=== PATIENT | female | born 1980 | race American Indian/Alaskan Native ===

== ENCOUNTER 2021-02-09 17:33 | Emergency (ER) | payer OTHER ==
[2021-02-09] MEDS ORDERED: SODIUM CHLORIDE 0.9% 1000 ML 1,000 ML IV ONE (17:41)
--- NOTE | 2021-02-09 17:41 | Emergency Department Report ---
History of Present Illness - General Chief Complaint: Overdose Stated Complaint: OD Time Seen by Provider: 02/09/21 17:35 - History of Present Illness Initial Comments: Patient is a 40-year-old female that presents emergency room for an overdose. Patient brought in by EMS. Patient took 20 tablets of 40 mg lisinopril mixed with 12.5 hydrochlorothiazide. Patient states pills were taken at 4 PM. Patient denies pain. Patient states she just needs to be. Patient states she was trying to kill herself. Patient states she been depressed and she is tired of all the stress. Patient states her son tried to commit suicide yesterday. Patient states she lost her 2 months ago today and is having a lot of grief and depression. Patient denies homicidal ideations. Patient denies hallucinations. Patient denies recent travel. Patient denies recent international travel. Patient denies exposure to the novel coronavirus. Patient denies sick contacts. Patient denies fever and chills. Patient denies cough. Patient denies diarrhea. Patient denies coming in contact with anybody with symptoms of the novel coronavirus. Complaint: intentional overdose -: Sudden Intent: suicide attempt How Overdose Was Discovered: called family/friend Context: Intentional Overdose: relationship problems - Related Data Home Medications Medication Instructions Recorded Confirmed Last Taken Lisinopril/Hydrochlorothiazide 1 tab PO QDAY 02/10/21 02/10/21 Unknown [Zestoretic 20-25 mg] metFORMIN [Glucophage] 1,000 mg PO BID 02/10/21 02/10/21 Unknown Allergies Allergy/AdvReac Type Severity Reaction Status Date / Time No Known Allergies Allergy Unverified 02/09/21 17:39 ED Review of Systems ROS: Stated complaint: OD Other details as noted in HPI Constitutional: denies: chills, fever Eyes: denies: eye pain, eye discharge, vision change ENT: denies: ear pain, throat pain Respiratory: denies: cough, shortness of breath, wheezing Cardiovascular: denies: chest pain, palpitations Endocrine: no symptoms reported Gastrointestinal: denies: abdominal pain, nausea, diarrhea Genitourinary: denies: urgency, dysuria, discharge Musculoskeletal: denies: back pain, joint swelling, arthralgia Skin: denies: rash, lesions Neurological: denies: headache, weakness, paresthesias Psychiatric: denies: anxiety, depression Hematological/Lymphatic: denies: easy bleeding, easy bruising ED Past Medical Hx - Past Medical History Previous Medical History?: Yes Hx Hypertension: Yes - Surgical History Past Surgical History?: No - Family History Family history: no significant - Social History Smoking Status: Never Smoker Substance Use Type: None - Medications Home Medications: Home Medications Medication Instructions Recorded Confirmed Last Taken Type Lisinopril/Hydrochlorothiazide 1 tab PO QDAY 02/10/21 02/10/21 Unknown History [Zestoretic 20-25 mg] metFORMIN [Glucophage] 1,000 mg PO BID 02/10/21 02/10/21 Unknown History ED Physical Exam - General General appearance: alert, in no apparent distress - Head Head exam: Present: atraumatic, normocephalic - Eye Eye exam: Present: normal appearance - ENT ENT exam: Present: mucous membranes moist - Neck Neck exam: Present: normal inspection - Respiratory Respiratory exam: Present: normal lung sounds bilaterally. Absent: respiratory distress - Cardiovascular Cardiovascular Exam: Present: regular rate, normal rhythm. Absent: systolic murmur, diastolic murmur, rubs, gallop - GI/Abdominal GI/Abdominal exam: Present: soft, normal bowel sounds - Extremities Exam Extremities exam: Present: normal inspection - Back Exam Back exam: Present: normal inspection - Neurological Exam Neurological exam: Present: alert, oriented X3 - Psychiatric Psychiatric exam: Present: normal affect, normal mood - Skin Skin exam: Present: warm, dry, intact, normal color. Absent: rash ED Course Vital Signs 02/09/21 02/09/21 02/09/21 17:41 20:18 21:21 Temperature 98 F Pulse Rate 120 H 90 Respiratory 16 18 Rate Blood Pressure 141/96 133/91 [Right] O2 Sat by Pulse 98 100 99 Oximetry 02/09/21 02/09/21 02/10/21 21:23 23:00 01:15 Temperature 97.6 F 98.0 F Pulse Rate 94 H 89 89 Respiratory 16 20 16 Rate Blood Pressure 139/94 144/96 107/65 [Right] O2 Sat by Pulse 100 98 98 Oximetry 02/10/21 02/10/21 02/10/21 08:18 20:00 21:00 Temperature 97.6 F 99.3 F Pulse Rate 89 95 H Respiratory 20 18 18 Rate Blood Pressure 136/95 116/83 [Right] O2 Sat by Pulse 100 97 97 Oximetry 02/11/21 09:09 Temperature 98.0 F Pulse Rate 90 Respiratory 20 Rate Blood Pressure 139/70 [Right] O2 Sat by Pulse 100 Oximetry - Reevaluation(s) Reevaluation #1: Patient evaluated and the nurse will contact poison control. 02/09/21 17:37 Reevaluation #2: Patient tolerated cervical. Patient denies pain. Patient blood pressure is stable. 02/09/21 18:55 Reevaluation #3: Patient's blood pressure is stable. Patient denies chest pain. Patient denies abdominal pain. 02/09/21 21:03 Reevaluation #4: Patient's blood pressures remained stable the entire time in the ER. Patient is medically cleared. Patient will remain in the ER as an ER hold and on a 1013 until the patient is cleared by our psychiatry team. Patient's final disposition will come from our psychiatry mental health team. I discussed all results and clinical findings with patient. I discussed plan of care with patient. 02/09/21 22:03 - Consultations Consultation #1: Poison control recommendations below. SHELLEY SWENSONJACQUI Female : 1980 MedRec# [id number] 02/09/21 17:40 - Nurse Note by BARBARA ALMODOVAR Acct Num: [id number] : 1980 Patient Age: 40 [address] Poison Control. The following recommendations for care are: EKG Cont. cardiac monitoring Tox screen UA, urine preg CBC CMP IVF D/C 6-8 hours to a psych facility if stable and at baseline. recommended 60gm of activated chacol Initialized on 02/09/21 17:40 - END OF NOTE ED Medical Decision Making - Lab Data Result diagrams: 02/09/21 17:53 02/09/21 17:53 - Medical Decision Making Patient is a 40-year-old female that presents emergency room with complaints of a suicide attempt with 20 tablets of 40 mg / 12.5 mg lisinopril/ hydrochlorothiazide. Patient ingested the pills at 4 PM. Patient was evaluated and placed on a 1013 and had medical clearance labs drawn. Immediately after initial evaluation, the bedside nurse consulted and received recommendations from [place] poison control. Poison control recommendations were labs, EKG and monitoring the patient for 6 to 8 hours after ingestion. Patient was monitored for adequate amount of time and the patient's blood pressure remained stable the entire time in the ER. Patient did complain of a headache and was given Tylenol which resolved her headache. Patient is medically cleared. Patient's final disposition will come from our psychiatry and mental health team. Patient remained in the ER as an ER hold and a 1013 until the patient is dispositioned by our psychiatry team. Patient transferred to the psych holding area after the patient was medically cleared and monitor for the allotted my time set up by poison control. Critical care time documented due to the multiple reassessments, prolonged time at the bedside, interpretation of diagnostics and labs. - Differential Diagnosis Overdose, suicidal ideation and suicide attempt, depression Critical Care Time: Yes Critical care time in (mins) excluding proc time.: 35 Critical care attestation.: If time is entered above; I have spent that time in minutes in the direct care of this critically ill patient, excluding procedure time. Critical Care Time: 35 minutes ED Disposition Clinical Impression: Suicidal ideations, Suicide attempt by drug overdose Overdose Qualifiers: Encounter type: initial encounter Injury intent: intentional self-harm Qualified Code(s): T50.902A - Poisoning by unspecified drugs, medicaments and biological substances, intentional self-harm, initial encounter Depression Qualifiers: Depression Type: unspecified Qualified Code(s): F32.9 - Major depressive disorder, single episode, unspecified Disposition: DC/TX-65 PSY HOSP/PSY UNIT Is pt being admited?: No Does the pt Need Aspirin: No Condition: Stable Referrals: PRIMARY CARE, [Primary Care Provider] - 3-5 Days Time of Disposition: 22:05
[2021-02-09] MEDS ORDERED: CHARCOAL/SORBITOL SOLUTION 25 GM/120 ML PO ONE (17:52)
[2021-02-09 18:06] LABS: Basophils % (Auto) 0.6 % (0.0-1.8); Eosinophils # (Auto) 0.1 K/mm3 (0.0-0.4); Eosinophils % (Auto) 0.9 % (0.0-4.3); Hematocrit 41.4 % (30.3-42.9); Hemoglobin 13.7 gm/dl (10.1-14.3); Lymphocytes # (Auto) 1.7 K/mm3 (1.2-5.4); Mean Corpuscular HGB Conc 33 % (30-34); Mean Corpuscular Volume 84 fl (79-97); Monocytes # (Auto) 0.6 K/mm3 (0.0-0.8); Platelet Count 327 K/mm3 (140-440); Red Blood Count 4.96 M/mm3 (3.65-5.03); Red Cell Distribution Width 14.9 % (13.2-15.2)
[2021-02-09 18:29] LABS: Alanine Aminotransferase 32 units/L (7-56); Albumin 4.4 g/dL (3.9-5); Blood Urea Nitrogen 9 mg/dL (7-17); Calcium 10.6 mg/dL (8.4-10.2); Hemolysis Index 9
[2021-02-09 18:30] LABS: BUN/Creatinine Ratio 15
[2021-02-09 18:35] LABS: Bilirubin,Urine NEG (Negative); Blood,Urine NEG (Negative); Color,Urine Straw (Yellow); Mucus,Urine FEW /HPF; Protein,Urine <15 mg/dL mg/dL (Negative); Urobilinogen,Urine < 2.0 mg/dL (<2.0)
[2021-02-09 18:44] LABS: Amphetamine Screen,Urine Negative; Benzodiazepines Screen,Urine Negative; Cannabinoid Screen,Urine Negative; Cocaine Screen,Urine Negative; Methadone Screen,Urine Negative; Opiate Screen,Urine Negative
--- NOTE | 2021-02-10 10:02 | Consultation ---
History of Present Illness - Reason for Consult Consult date: 02/10/21 Reason for consult: OD - History of Present Psychiatric Illness Per ED Note: Patient is a 40-year-old female that presents emergency room for an overdose. Patient brought in by EMS. Patient took 20 tablets of 40 mg lisinopril mixed with 12.5 hydrochlorothiazide. Patient states pills were taken at 4 PM. Patient denies pain. Patient states she just needs to be. Patient states she was trying to kill herself. Patient states she been depressed and she is tired of all the stress. Patient states her son tried to commit suicide yesterday. Patient states she lost her 2 months ago today and is having a lot of grief and depression. Patient denies homicidal ideations. Patient denies hallucinations. Sukhjinder Dominguez is a 40y/o female patient who was seen today. The patient is withdrawn. She verbalizes being depressed and is tearful. She says she "took a whole bunch of pills." The patient says it's hard, and been rough since losing her a couple months ago. She says her son is also currently admitted in a psych hospital for attempting suicide. The patient says she has no support since losing her spouse, and all her family is in another state. The patient denies past suicidal attempts, admits or psych medications. She says she sees a therapist but wasn't diagnosed with anything. PAST PSYCHIATRIC HISTORY Diagnoses: Denies Suicide attempts or Self-harm behavior: Denies Prior psychiatric hospitalizations: Denies Substance Abuse history: Denies Previous psychiatric medications tried: Denies Outpatient treatment: counseling PAST MEDICAL HISTORY: HTN Family Psychiatric History: none reported SOCIAL HISTORY Marital Status: Living Arrangements: with children Employment Status: Employed Access to guns/weapons: Denies Education: History of Abuse: None reported Legal History: None reported REVIEW OF SYSTEMS Constitutional: Negative for weight loss ENT: Negative for stridor Respiratory: Negative for cough or hemoptysis All other systems reviewed and are negative MENTAL STATUS EXAMINATION General Appearance and Behavior: Age appropriate, good hygiene, wearing appropriate clothes, fair eye contact, cooperative polite with questioning. withdrawn Cooperation: Participating/engaged Psychomotor Behavior: unremarkable and within normal limits Mood: Depressed Affect and affective range: congruent with mood, tearful Thought Process: goal directed Thought Content: SI Speech: Normal volume, Regular rate and rhythm Intellectual Functioning: Average Suicidal Ideation: Yes Homicidal Ideation: Denies HI Hallucinations: Denies Delusions: None elicited Impulse Control: Unimpaired Insight and Judgment: Poor insight and judgment Memory: Normal Attention: Divided Orientation: Alert, oriented Assessment and Plan (1) Schizophrenia Current Visit: Yes Status: Acute F20.9 RECOMMENDATIONS 1013 Start Zoloft 25mg cameron daily Start Trazodone 50mg po qhs Start Vistaril 25mg po BID Risks, benefits and alternatives of medications discussed with the patient, questions answered and consent obtained from patient. PSYCHOTHERAPY: Supportive psychotherapy provided MEDICAL: Per primary team DELIRIUM PRECAUTIONS: Please re-orient patient frequently, keep lights on during the day, and minimize benzodiazepines and opiates as these medications could worsen patient's confusion. 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 Please contact with any questions and/or concerns. Medications and Allergies Allergies Allergy/AdvReac Type Severity Reaction Status Date / Time No Known Allergies Allergy Unverified 02/09/21 17:39 Home Medications Medication Instructions Recorded Confirmed Last Taken Type Lisinopril/Hydrochlorothiazide 1 tab PO QDAY 02/10/21 02/10/21 Unknown History [Zestoretic 20-25 mg] metFORMIN [Glucophage] 1,000 mg PO BID 02/10/21 02/10/21 Unknown History Mental Status Exam - Vital signs Last Vital Signs Temp 97.6 F 02/10/21 08:18 Pulse 89 02/10/21 08:18 Resp 20 02/10/21 08:18 BP 136/95 02/10/21 08:18 Pulse Ox 100 02/10/21 08:18 Results Result Diagrams: 02/09/21 17:53 02/09/21 17:53 Abnormal lab results 02/09/21 02/09/21 02/09/21 Range/Units 17:53 17:53 17:53 [place] % (Auto) 9.0 H (0.0-7.3) % Sodium 136 L (137-145) mmol/L Glucose 265 H (65-100) mg/dL POC Glucose (70-105) mg/dL Calcium 10.6 H (8.4-10.2) mg/dL Salicylates < 0.3 L (2.8-20.0) mg/dL Acetaminophen (10.0-30.0) ug/mL 02/09/21 02/10/21 Range/Units 17:53 09:50 [place] % (Auto) (0.0-7.3) % Sodium (137-145) mmol/L Glucose (65-100) mg/dL POC Glucose 411 H (70-105) mg/dL Calcium (8.4-10.2) mg/dL Salicylates (2.8-20.0) mg/dL Acetaminophen 5.0 L (10.0-30.0) ug/mL All other labs normal.
[2021-02-10] MEDS ORDERED: INSULIN REGULAR, HUMAN 100 UNITS/1 ML SUB-Q ONE ×2 (10:45→20:55)
--- NOTE | 2021-02-10 10:45 | Event Note ---
Date: 02/10/21 This patient presented yesterday after a suicide attempt by overdose in which he took lisinopril and hydrochlorothiazide. She was seen by my colleague who has medically cleared her for psychiatric placement. She is a 1013 and an ED hold secondary to the suicide attempt and her major depressive disorder. Despite the overdose attempt by antihypertensive medication, the patient is not hypotensive. Her vital signs have been reassuring including being afebrile. Patient's labs are mostly unremarkable except for hyperglycemia. She does have a history of [id number] diabetes on top of the hypertension. Her Accu- Chek from this morning is 411. No elevation in the anion gap and the patient does not appear in diabetic ketoacidosis. I am reconciling the patient's medication including her Metformin. I am going to give her a small dose of subcutaneous insulin as well. It appears that the patient has been accepted for transfer to [facility] once her blood sugar is better controlled. We will continue to monitor during her ED course. Vital Signs - 24 hr 02/09/21 02/09/21 02/09/21 17:41 20:18 21:21 Temperature 98 F Pulse Rate 120 H 90 Respiratory 16 18 Rate Blood Pressure 141/96 133/91 [Right] O2 Sat by Pulse 98 100 99 Oximetry 02/09/21 02/09/21 02/10/21 21:23 23:00 01:15 Temperature 97.6 F 98.0 F Pulse Rate 94 H 89 89 Respiratory 16 20 16 Rate Blood Pressure 139/94 144/96 107/65 [Right] O2 Sat by Pulse 100 98 98 Oximetry 02/10/21 08:18 Temperature 97.6 F Pulse Rate 89 Respiratory 20 Rate Blood Pressure 136/95 [Right] O2 Sat by Pulse 100 Oximetry
[2021-02-10] MEDS: SERTRALINE 25 MG TAB PO SCH (11:58)
[2021-02-10] MEDS: hydrOXYzine PAMOATE 25 MG CAP PO SCH ×2 (11:58→22:21)
[2021-02-10] MEDS: metFORMIN 500 MG TAB PO SCH ×2 (11:59→17:15)
--- NOTE | 2021-02-10 14:19 | Electrocardiograph Report ---
[facility] Test Date: 2021-02-09 Test Time: 18:43:10 Pat Name: ANN SWENSON Department: Room: Gender: F Bulker: JAGDEEP : 1980 Requested By: ISAAC DASILVA III Order Number: [id number] Reading MD: Autumn Mccray Measurements Intervals [place] Rate: 90 P: 67 HI: 172 QRS: -20 QRSD: 84 T: -1 QT: 350 QTc: 428 Interpretive Statements Sinus rhythm Probable left atrial enlargement Inferior infarct, old Anterior infarct, old No previous ECG available for comparison Electronically Signed On 02-10-2021 14:19:10 EDT by Autumn Mccray
[2021-02-10] MEDS ORDERED: traZODone 50 MG TAB PO SCH (22:00)
[2021-02-11] MEDS: metFORMIN 500 MG TAB PO SCH ×2 (08:12→16:41)
[2021-02-11 09:11] VITALS: BP 139/70
[2021-02-11] MEDS: hydrOXYzine PAMOATE 25 MG CAP PO SCH (10:48)
[2021-02-11] MEDS: SERTRALINE 25 MG TAB PO SCH (10:48)
--- NOTE | 2021-02-11 11:13 | Event Note ---
S: no concerns O: appears well, stable vital signs A: depression, suicide attempt by overdose, patient is medically clear for psychiatric care P: Awaiting treatment recommendations by mental health team
[2021-02-11] MEDS ORDERED: DEXTROSE 50% IN WATER (25GM) 50 ML SYRINGE IV PRN (11:56)
[2021-02-11] MEDS: INSULIN LISPRO 100 UNIT/ML SUB-Q SCH ×2 (12:29→16:40)
--- NOTE | 2021-02-11 13:02 | Progress Note ---
Subjective Date of service: 02/11/21 Subjective Comment: PAST PSYCHIATRIC HISTORY: Diagnoses: schizophrenia Suicide attempts or Self-harm behavior: denies Prior psychiatric hospitalizations: yes Substance Abuse history: denies Previous psychiatric medications tried: noncompliant Outpatient treatment: n/a PAST MEDICAL HISTORY: n/a Family Psychiatric History: None reported or documented SOCIAL HISTORY Marital Status: no Living Arrangements: n/a Employment Status: n/a Access to guns/weapons: n/a Education: n/a History of Abuse: n/a Legal History: n/a Per Nurse Note: 0500-Patient resting quietly. Easily awakened. No distress noted. The patient was seen resting quietly in bed. Patient reports not eating her breakfast because "it will raise her blood sugar." Patient states she feels better awaiting transfer to [facility] but states " I just can't get my blood sugar down." This morning Blood glucose was 275. Patient reports being under alot of stress, states her son is at [facility] for Suicidal attempt. REVIEW OF SYSTEMS Constitutional: Negative for weight loss ENT: Negative for stridor Respiratory: Negative for cough or hemoptysis All other systems reviewed and are negative MENTAL STATUS EXAMINATION General Appearance and Behavior: Age appropriate, good hygiene, wearing appropriate clothes, fair eye contact, cooperative polite with questioning. withdrawn Cooperation: Participating/engaged Psychomotor Behavior: unremarkable and within normal limits Mood: Depressed Affect and affective range: congruent with mood, tearful Thought Process: goal directed Thought Content:SI Speech: Normal volume, Regular rate and rhythm Intellectual Functioning: Average Suicidal Ideation: Yes Homicidal Ideation: Denies HI Hallucinations: Denies Delusions: None elicited Impulse Control: Unimpaired Insight and Judgment: Poor insight and judgment Memory: Normal Attention: Divided Orientation: Alert, oriented Assessment and Plan (1) Schizophrenia Current Visit: Yes Status: Acute F20.9 RECOMMENDATIONS 1013 Start Zoloft 25mg cameron daily Start Trazodone 50mg po qhs Start Vistaril 25mg po BID Risks, benefits and alternatives of medications discussed with the patient, questions answered and consent obtained from patient. PSYCHOTHERAPY: Supportive psychotherapy provided MEDICAL: Per primary team DELIRIUM PRECAUTIONS: Please re-orient patient frequently, keep lights on during the day, and minimize benzodiazepines and opiates as these medications could worsen patient's confusion. 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 Please contact with any questions and/or concerns. Medications and Allergies Allergies Allergy/AdvReac Type Severity Reaction Status Date / Time No Known Allergies Allergy Unverified 02/09/21 17:39 Home Medications Medication Instructions Recorded Confirmed Last Taken Type Lisinopril/Hydrochlorothiazide 1 tab PO QDAY 02/10/21 02/10/21 Unknown History [Zestoretic 20-25 mg] metFORMIN [Glucophage] 1,000 mg PO BID 02/10/21 02/10/21 Unknown History Active Meds: Active Medications Dextrose (Dextrose 50% In Water (25gm) 50 Ml Syringe) 50 ml IV Q30MIN PRN; Protocol PRN Reason: Hypoglycemia Hydroxyzine Pamoate (Hydroxyzine Pamoate 25 Mg Cap) 25 mg PO BID [facility] Last Admin: 02/11/21 10:48 Dose: 25 mg Documented by: Insulin Human Lispro (Insulin Lispro 100 Unit/Ml) 5 unit SUB-Q AC [facility] Last Admin: 02/11/21 12:29 Dose: 5 unit Documented by: Metformin HCl (Metformin 500 Mg Tab) 1,000 mg PO BIDDIAB [facility] Last Admin: 02/11/21 08:12 Dose: 1,000 mg Documented by: Sertraline HCl (Sertraline 25 Mg Tab) 25 mg PO QDAY [facility] Last Admin: 02/11/21 10:48 Dose: 25 mg Documented by: Trazodone HCl (Trazodone 50 Mg Tab) 50 mg PO QHS [facility] Last Admin: 02/10/21 22:21 Dose: 50 mg Documented by: Results - Results Labs/Vitals: Laboratory Last Values WBC 7.1 K/mm3 (4.5-11.0) 02/09/21 17:53 RBC 4.96 M/mm3 (3.65-5.03) 02/09/21 17:53 Hgb 13.7 gm/dl (10.1-14.3) 02/09/21 17:53 Hct 41.4 % (30.3-42.9) 02/09/21 17:53 MCV 84 fl (79-97) 02/09/21 17:53 MCH 28 pg (28-32) 02/09/21 17:53 MCHC 33 % (30-34) 02/09/21 17:53 RDW 14.9 % (13.2-15.2) 02/09/21 17:53 Plt Count 327 K/mm3 (140-440) 02/09/21 17:53 Lymph % (Auto) 24.0 % (13.4-35.0) 02/09/21 17:53 [place] % (Auto) 9.0 % (0.0-7.3) H 02/09/21 17:53 Eos % (Auto) 0.9 % (0.0-4.3) 02/09/21 17:53 Baso % (Auto) 0.6 % (0.0-1.8) 02/09/21 17:53 Lymph # (Auto) 1.7 K/mm3 (1.2-5.4) 02/09/21 17:53 [place] # (Auto) 0.6 K/mm3 (0.0-0.8) 02/09/21 17:53 Eos # (Auto) 0.1 K/mm3 (0.0-0.4) 02/09/21 17:53 Baso # (Auto) 0.0 K/mm3 (0.0-0.1) 02/09/21 17:53 Seg Neutrophils % 65.5 % (40.0-70.0) 02/09/21 17:53 Seg Neutrophils # 4.6 K/mm3 (1.8-7.7) 02/09/21 17:53 Sodium 136 mmol/L (137-145) L 02/09/21 17:53 Potassium 3.8 mmol/L (3.6-5.0) 02/09/21 17:53 Chloride 99.6 mmol/L (98-107) 02/09/21 17:53 Carbon Dioxide 24 mmol/L (22-30) 02/09/21 17:53 Anion Gap 16 mmol/L 02/09/21 17:53 BUN 9 mg/dL (7-17) 02/09/21 17:53 Creatinine 0.6 mg/dL (0.6-1.2) 02/09/21 17:53 Estimated GFR > 60 ml/min 02/09/21 17:53 BUN/Creatinine Ratio 15 % 02/09/21 17:53 Glucose 265 mg/dL (65-100) H 02/09/21 17:53 POC Glucose 241 mg/dL (70-105) H 02/11/21 11:29 Calcium 10.6 mg/dL (8.4-10.2) H 02/09/21 17:53 Total Bilirubin < 0.20 mg/dL (0.1-1.2) 02/09/21 17:53 AST 16 units/L (5-40) 02/09/21 17:53 ALT 32 units/L (7-56) 02/09/21 17:53 Alkaline Phosphatase 103 units/L (35-129) 02/09/21 17:53 Total Protein 7.3 g/dL (6.3-8.2) 02/09/21 17:53 Albumin 4.4 g/dL (3.9-5) 02/09/21 17:53 Albumin/Globulin Ratio 1.5 % 02/09/21 17:53 HCG, Qual Negative (Negative) 02/09/21 17:53 Urine Color Straw (Yellow) 02/09/21 Unknown Urine Turbidity Clear (Clear) 02/09/21 Unknown Urine pH 7.0 (5.0-7.0) 02/09/21 Unknown Ur Specific [place] 1.023 (1.003-1.030) 02/09/21 Unknown Urine Protein <15 mg/dl mg/dL (Negative) 02/09/21 Unknown Urine Glucose (UA) >=500 mg/dL (Negative) 02/09/21 Unknown Urine Ketones Tr mg/dL (Negative) 02/09/21 Unknown Urine Blood Neg (Negative) 02/09/21 Unknown Urine Nitrite Neg (Negative) 02/09/21 Unknown Urine Bilirubin Neg (Negative) 02/09/21 Unknown Urine Urobilinogen < 2.0 mg/dL (<2.0) 02/09/21 Unknown Ur Leukocyte Esterase Neg (Negative) 02/09/21 Unknown Urine WBC (Auto) 1.0 /HPF (0.0-6.0) 02/09/21 Unknown Urine RBC (Auto) 3.0 /HPF (0.0-6.0) 02/09/21 Unknown U Epithel Cells (Auto) < 1.0 /HPF (0-13.0) 02/09/21 Unknown Urine Mucus Few /HPF 02/09/21 Unknown Salicylates < 0.3 mg/dL (2.8-20.0) L 02/09/21 17:53 Urine Opiates Screen Negative 02/09/21 Unknown Urine Methadone Screen Negative 02/09/21 Unknown Acetaminophen 5.0 ug/mL (10.0-30.0) L 02/09/21 17:53 Ur Barbiturates Screen Negative 02/09/21 Unknown Ur Phencyclidine Scrn Negative 02/09/21 Unknown Ur Amphetamines Screen Negative 02/09/21 Unknown U Benzodiazepines Scrn Negative 02/09/21 Unknown Urine Cocaine Screen Negative 02/09/21 Unknown U Marijuana (THC) Screen Negative 02/09/21 Unknown Drugs of Abuse Note Disclamer 02/09/21 Unknown Plasma/Serum Alcohol < 0.01 % (0-0.07) 02/09/21 17:53 Coronavirus (PCR) Negative (Negative) 02/10/21 Unknown Last Vital Signs Temp 98.0 F 02/11/21 09:09 Pulse 90 02/11/21 09:09 Resp 20 02/11/21 09:09 BP 139/70 02/11/21 09:09 Pulse Ox 100 02/11/21 09:09
== END 2021-02-11 19:24 ==
LOC: ED 17:33 → EEVIPCON 17:33 → ED 02-11 19:24
DX: T46.4X2A Poisoning by angiotensin-converting-enzyme inhibitors, intentional self-harm, initial encounter (principal); Z20.822 Contact with and (suspected) exposure to COVID-19; R45.851 Suicidal ideations; F32.9 Major depressive disorder, single episode, unspecified; I10 Essential (primary) hypertension; Z79.899 Other long term (current) drug therapy; Y92.89 Other specified places as the place of occurrence of the external cause
CPT/HCPCS: 36415; 80053; 80307; 81001; 82962; 84703; 85025; 93005; 96360; 96361; 96372; 99285; J7030; Q0177; U0003; 80320; G0480; J1815